=== PATIENT | male | born 1975 | race Caucasian/White ===

== ENCOUNTER 2020-01-12 12:25 | Emergency (ER) | payer OTHER, SELFPAY ==
[2020-01-12 12:26] VITALS: BP 148/94; PULSE 101; RESP 24; TEMP 36.6; O2SAT 97; BMI 31.6
[2020-01-12 12:31] VITALS: BP 133/95; PULSE 109; RESP 24; TEMP 36.6; O2SAT 96
--- NOTE | 2020-01-12 12:43 | CT_ITS ---
STUDY: CTA CHEST REASON FOR EXAM: Male, 44 years old. DYSPNEA, RT SIDED CP, COUGH, SOB, TACHYCARDIA RADIATION DOSAGE (If Supplied By Facility): CTDIvol = ( 14.82 ) mGy, DLP = ( 376.63 ) mGycm TECHNIQUE: The examination was performed with the intravenous administration of IV 100mL Isovue-370. Post-processing of the angiographic images was performed, with multiplanar reformation and 3D reconstruction. Individualized dose optimization techniques were used for this CT. COMPARISON: None. FINDINGS: Normal enhancement of the main pulmonary artery and right and left pulmonary arteries. Normal enhancement of the bilateral peripheral pulmonary arteries. There is no demonstrated pulmonary embolism. Normal thoracic aorta and visualized great vessels. There is no demonstrated aortic dissection. Normal heart and pericardium. Normal mediastinum. Prominent right hilar lymph node measuring 1.1 cm. Normal visualized trachea and bronchi. The lungs are well expanded. Infiltration at both lung bases more prominent on the right side. Minimal pleural thickening. Normal chest wall structures. There are degenerative changes of thoracic spine. Normal visualized upper abdomen. CT/CTA Chest W/WO Contrast IMPRESSION: Bibasilar pulmonary infiltrates worse on the right lung base. Minimal pleural thickening. No evidence of pulmonary embolism. Electronically Signed: Nacho Araujo, at 14:15 EDT , Service support ,
--- NOTE | 2020-01-12 12:45 | ED.VISSUMM ---
- ER Visit Summary Date of Service: 01/12/20 Chief Complaint: Chest pain History of Present Illness: The patient is a 44 M who presents with right-sided chest pain that began 3 days ago. Patient describes the pain is sharp. Patient states the pain is worse when he lays flat and takes a deep breath. Patient states nothing is been helping with the pain. Patient does admit to some shortness of breath. Patient admits to a cough with some clear sputum. Patient denies any recent fevers or chills. Patient denies any rhinorrhea or sore throat. Patient does admit to some left calf tenderness. Patient is a smoker. Patient denies any other cardiac risk factors. Physical Examination: Vital signs are stable except for a tachycardia of 101 and a tachypnea of 24. Patient is afebrile. Patient is in no acute distress. Oral mucosa is pink and moist. Neck is supple. Trachea is midline. There is no JVD. Heart was regular rate and rhythm. Lungs are clear and equal bilaterally. Abdomen is soft. Bowel sounds are normal. There is no tenderness. Cranial nerves II through XII are intact. There are no focal motor or sensory deficits noted. Extremities are intact. There is left calf tenderness and mild edema. Pedal pulses are equal bilaterally. Test Results: EKG showed sinus tachycardia with a rate of 108. There are no acute ST or T wave changes. CBC shows a leukocytosis of 13.7. Basic metabolic profile and troponin were within normal limits. Due to the tachycardia and tachypnea and pleuritic chest pain, CTA of the chest was obtained. There are bibasilar infiltrates, worse on the right. There is no evidence of pulmonary embolism. This was interpreted by the radiologist and reviewed by myself. Lactate was obtained and was normal. Blood cultures were obtained. Emergency Department Course and Treatment: Patient was given a dose of IV Rocephin and oral Zithromax here. Patient was feeling better on reevaluation. Patient's vital signs improved. Ambulatory pulse ox was ordered. If the patient is able to ambulate and maintain oxygen saturation above 93%, I feel he will be able to go home safely. Patient was given prescriptions for Zithromax and Augmentin. Patient was instructed to follow-up with his primary care physician in 5 to 7 days. Patient understood and was agreeable with the plan. All questions were answered. Disposition: Discharge home Impression: 1. Community-acquired pneumonia This note was generated with [employer] dictation software. It may contain incorrect words, spelling, and punctuation that were not noted in review of the chart prior to signing ED Disposition - Plan for ED Patient: Disposition: Home or Assisted Living Diagnosis: Pneumonia Instructions: ED PNEUMONITIS Adult Prescriptions: Amox/Clavulanate Tablet [Augmentin Tablet] 875 mg PO Q12H #20 tab Prescription Printed Azithromycin [Zithromax] 250 mg PO DAILY #4 tab Prescription Printed Referrals: Care Physician,No Primary [Primary Care Provider] - Aiden Latham MD [STAFF PHYSICIAN] - 5-7 Days
[2020-01-12] MEDS: Aspirin 81 MG TAB.CHEW 324 MG PO (12:55)
[2020-01-12] MEDS: Morphine 4 MG/ML Syringe IV (12:55)
[2020-01-12 13:09] LABS: Absolute Lymphocyte Count 2.98 X10^3/uL (0.83-4.51); Anion Gap 5 (5-15); BUN 12 mg/dL (7-18); BUN/Creat Ratio 10.3 RATIO (10-20); Basophil# 0.06 X10^3/uL; Basophil% 0.4 % (0-1); Calcium,Total 9.4 mg/dL (8.5-10.1); Chloride 103 mmol/L (98-107); Creatinine, Serum 1.17 mg/dL (0.70-1.30); EST Glomerular Filtration Rate 72 mL/min (>60); Eosinophil# 0.11 X10^3/uL; Eosinophils% 0.8 % (0-5); Est Glom Filt Rate - Afr Amer 88 mL/min (>60); Estimated Creatinine Clearance 74.22 ml/min; Glucose 104 mg/dL (74-106); Hematocrit 48.2 % (40-54); Hemoglobin 15.9 g/dL (13.0-16.5); Lymphocyte # 2.98 X10^3/ul (4.0); Lymphocyte % 21.8 % (19-41); Mean Corpuscular Hgb 31.2 pg (27.0-32.0); Mean Corpuscular Volume 94.5 fL (80-94); Monocyte# 1.46 X10^3/uL; Monocyte% 10.7 % (0-10); NRBC Flagged by Analyzer 0 % (0-5); Neutrophil # 8.97 X10^3/uL (2.7-7.7); Neutrophil % 65.6 % (47-70); Platelet Count 276 K/mm3 (150-450); Potassium 3.9 mmol/L (3.5-5.1); RBC Distribution Width CV 13.6 % (11.6-14.6); RBC Distribution Width SD 47.6 fl (35.1-43.9); Sodium Level 135 mmol/L (136-145); White Blood Count 13.7 K/mm3 (4.4-11.0)
[2020-01-12 13:46] VITALS: BP 131/92; PULSE 85; RESP 18; O2SAT 96
[2020-01-12 14:15] LABS: Lactic Acid 1.4 mmol/L (0.4-1.9)
[2020-01-12] MEDS: Ceftriaxone 1 GM/50 ML BAG IV (14:51)
[2020-01-12 14:56] VITALS: O2SAT 96
[2020-01-12] MEDS: Azithromycin 250 MG Tablet 500 MG PO (15:00)
[2020-01-12 15:01] VITALS: BP 121/92; PULSE 81; RESP 24; O2SAT 97
== END 2020-01-12 16:16 | disposition home or self-care (01) ==
PROVIDERS: Emergency Provider Emergency Medicine
DX: J18.9 Pneumonia, unspecified organism (principal); F17.200 Nicotine dependence, unspecified, uncomplicated
CPT/HCPCS: 71275; 80048; 83605; 84484; 85025; 87040; 93005; 96365; 96374; 99285; J7050; Q9967; A4216